=== PATIENT | male | born 1975 | race Caucasian/White ===

== ENCOUNTER → 2017-03-10 | Outpatient (CLI) | payer BC ==
[~2017-03-10] MED LIST: IBUPROFEN
== END ==
LOC: SLEEP 17:08
PROVIDERS: ATTEND Internal Medicine
DX: R06.83 Snoring (principal)
CPT/HCPCS: 95806

== ENCOUNTER 2017-12-31 10:59 | Emergency (ER) | payer BC ==
[~2017-12-31] VITALS: Ht 190.5 cm; Wt 108.0 kg
--- OUTSIDE RECORDS SUMMARY | 2017-12-31 11:00 | XMS REPORT ---
Author Author [facility] Address Unknown Phone Unavailable Care Team Providers Care Ic Engineer Name Role Phone Unavailable Unavailable Payers Payer Name Policy Type Policy Number Effective Date Expiration Date Problems This patient has no known problems. Allergies, Adverse Reactions, Alerts Allergy Name Allergy Type Status Severity Reaction(s) Onset Date Inactive Date Treating Clinician Comments No Known Allergies DA Active U 2017-12-23 00:00:00 Medications This patient has no known medications.
[2017-12-31] MEDS ORDERED: HYDROCODONE/APAP 5MG-325MG TAB PO NR (12:00)
--- NOTE | 2017-12-31 12:50 | Diagnostic Imaging Report ---
Right complete knee. CPT CODE: 43520. INDICATION: Fall COMPARISON: None FINDINGS: The oblique view is suboptimal. There are obliquely oriented fractures through the head/neck of the proximal fibula with minimal displacement on lateral image. Proximal tibia, distal femur, and patella are intact. Mild prominence of the tibial spines and trace medial and patellofemoral compartment narrowing. No joint effusion. IMPRESSION: 1. Oblique fractures fibular head without significant displacement. 2. Early degenerative changes of the knee. Signed by: Dr. Ivis Lorenz MD on 12/31/2017 12:46 PM
--- NOTE | 2017-12-31 13:22 | Diagnostic Imaging Report ---
History: Fall Comparison studies: None Technique: Axial images were obtained from the skull base to the vertex. Coronal and sagittal reconstructions obtained from the axial data. Dose modulation, iterative reconstruction, and/or weight based adjustment of the mA/kV was utilized to reduce the radiation dose to as low as reasonably achievable. Findings: Scalp/skull: No abnormalities. No fractures, blastic or lytic lesions. Extra-axial spaces: No masses. No fluid collections. Brain sulci: Appropriate for age. Ventricles: Normal in size and configuration. No hydrocephalus. Parenchyma: No abnormal densities. No masses, hemorrhage, acute or chronic cortical vascular insults. Sellar/suprasellar region: No abnormalities Craniocervical junction: Patent foramen magnum. No Chiari one malformation. IMPRESSION: No abnormalities . Signed by: DR Eder Krishnan M.D. on 12/31/2017 1:18 PM
--- NOTE | 2017-12-31 13:42 | Diagnostic Imaging Report ---
Ankle complete CPT CODE: 45424 HISTORY: Fall TECHNIQUE: Three views right ankle obtained COMPARISON: Right knee x-rays performed at 1207 hours. FINDINGS: The distal tibia and fibula appear intact. The posterior malleolus appears intact. Small osteophytes arise from the inferior malleoli. Ankle mortise remains symmetric. There is mild bimalleolar soft tissue swelling. The calcaneus appears intact. The visualized portions of the midfoot and forefoot are intact. IMPRESSION: No evidence of acute fracture or dislocation involving the ankle. Mild ankle swelling. Please correlate for medial ankle pain and swelling. Signed by: Dr. Ivis Lorenz MD on 12/31/2017 1:38 PM
[2017-12-31] MEDS ORDERED: TYLENOL WITH C1 EACH PO (15:18)
== END 2017-12-31 15:38 | disposition home or self-care (01) ==
LOC: ER 10:59
DX: S00.83XA Contusion of other part of head, initial encounter (principal); S82.424A Nondisplaced transverse fracture of shaft of right fibula, initial encounter for closed fracture; S83.91XA Sprain of unspecified site of right knee, initial encounter; W01.0XXA Fall on same level from slipping, tripping and stumbling without subsequent striking against object, initial encounter; Y93.01 Activity, walking, marching and hiking; Y92.008 Other place in unspecified non-institutional (private) residence as the place of occurrence of the external cause; I10 Essential (primary) hypertension
CPT/HCPCS: 70450; 99283

== ENCOUNTER → 2018-12-19 | Outpatient (CLI) | payer BC ==
[~2018-12-19] MED LIST changes: +GADOBENATE DIMEGLUMINE 1 ML IV ONE; +IOPAMIDOL 300 MG/ML 15ML VIAL IT ONE; +LIDOCAINE HCL 1% LOCAL INJ 20 ML VIAL ONE; +TYLENOL WITH C1 EACH PO
--- NOTE | 2018-12-19 12:50 | Diagnostic Imaging Report ---
EXAM: INJECTION ARTHROGRAM RIGHT GLENOHUMERAL JOINT DATE: 12/19/2018 12:00 AM INDICATION: Right shoulder pain COMPARISON: None Physician performing procedure: Dr. Zandra Coe MD PROCEDURES PERFORMED: Fluoroscopically-guided right glenohumeral joint arthrogram with MRI to follow Fluoro time: 0.6 minutes Dose: 6.7 mGy Anesthesia: Local, 1% lidocaine Devices: 22 gauge BD Quincke needle PROCEDURE REPORT: After written and verbal consent were obtained, the patient was placed supine on the fluoroscopy table with the right arm in external rotation.. Using fluoroscopic guidance, sterile technique and local anesthesia, a 22 gauge, 3.5 inch needle was inserted percutaneously into the right glenohumeral joint. Proper placement was confirmed by injecting Isovue 300 into the joint under fluoroscopy. Next, 12cc of a 1:100 mixture of Multihance with Isovue 300 and normal saline was injected. Complications: None Blood loss: Minimal Samples: None Patient disposition: MRI in stable condition. IMPRESSION: Uncomplicated fluoroscopically-guided right glenohumeral arthrogram with MRI to follow. Contrast is within the joint. See MRI report for full findings. Signed by: Zandra Coe MD on 12/19/2018 12:47 PM
--- NOTE | 2018-12-19 13:24 | Diagnostic Imaging Report ---
MRI of the right shoulder with contrast. History: Labral tear. Shoulder pain. Decreased range of motion. Pain not responding to conservative management Comparison: Radiographs 12/19/2018 Technique: Multiplanar multisequence MRI of the shoulder after the administration of intra-articular gadolinium contrast material Findings: Rotator cuff: Rotator cuff tendinosis with midsubstance degeneration and mild articular sided partial tear involving the anterior fibers of the supraspinatus tendon at the humeral insertion site. Additionally, there is infraspinatus and subscapularis tendinosis. The teres minor tendon is intact. Osseous acromion complex: Type II acromion with mild lateral downsloping. Mild degenerative arthrosis at the acromioclavicular joint with undersurface spurring and narrowing of the supraspinatus tendon outlet Glenohumeral joint: Superior labral tear extending from anterior to posterior. The humeral head is well-seated in the glenoid fossa. Gadolinium contrast material is seen filling the shoulder joint. The articular cartilage surfaces are intact. Capsular structures are intact. Biceps tendon: The biceps tendon is intact. Other findings: Negative for muscle denervation or osseous fracture. Impression: Superior labral tear extending from anterior to posterior. Rotator cuff tendinosis with midsubstance degeneration and mild articular sided partial tear involving the anterior fibers of the supraspinatus tendon at the humeral insertion site Signed by: Dr. Usman Reid M.D. on 12/19/2018 1:21 PM
== END ==
LOC: DX 10:24
PROVIDERS: ATTEND Specialist
DX: S43.431A Superior glenoid labrum lesion of right shoulder, initial encounter (principal)
CPT/HCPCS: 23350; 73222; A9577; J2001; Q9967; 20610

== ENCOUNTER → 2019-01-16 | Day surgery (SDC) | payer BC ==
[~2019-01-16] MED LIST changes: +BUPIVACAINE 0.25% 30ML SDV INJ ONE; +CLINDAMYCIN PHOS 900MG/ 50ML 50 ML IV ONE; +DEXAMETHASONE SOD PHOS INJ 4 MG/ML VIAL ONE; +EPHEDRINE SULFATE INJ 50 MG/ML VIAL ONE; +EPINEPHRINE 1 MG/ML 30ML VIAL ONE; +EYE LUBRICANT OPTH OINT 3.5GM TUBE OP ONE; +FENTANYL CITRATE/PF 100MCG/2 ML INJ ONE; -GADOBENATE DIMEGLUMINE 1 ML IV ONE; +GLYCOPYRROLATE INJ 0.2 MG/ML VIAL ONE; -IOPAMIDOL 300 MG/ML 15ML VIAL IT ONE; +LIDOCAINE 2% /EPINEPHRINE 20 ML SDV INJ ONE; -LIDOCAINE HCL 1% LOCAL INJ 20 ML VIAL ONE; +LIDOCAINE HCL 2% LOCAL INJ 5 ML SDV VIAL INJ ONE; +METOCLOPRAMIDE HCL 10 MG/2ML VIAL ONE; +MIDAZOLAM HCL 2 MG/2 ML VIAL ONE; +NEOSTIGMINE 1 MG/ML 10ML VIAL ONE; +NOREPINEPHRINE INJ 4MG/4ML 4 ML ONE; +ONDANSETRON HCL INJ 2MG/ML 2ML 2 MG/ML VIAL ONE; +PHENYLEPHRINE HCL 1% 10 MG/ML VIAL ONE; +PROPOFOL IV EMULSION 10 MG/ML 20 ML VIAL ONE; +ROCURONIUM BROMIDE 10 MG/ML 5ML VIAL ONE; +SEVOFLURANE INHAL SOLN 250 ML PEN BTL ONE; +SODIUM CHLORIDE 0.9% 100 ML ONE
[2019-01-16 13:30] VITALS: BP 133/80
--- NOTE | 2019-01-18 15:53 | Operative Report ---
DATE OF PROCEDURE: 01/16/2019 SURGEON: Willis Fletcher MD PREOPERATIVE DIAGNOSIS: Right shoulder labral tear. POSTOPERATIVE DIAGNOSES: Right shoulder labral tear and right shoulder partial rotator cuff tear. OPERATIONS AND PROCEDURES PERFORMED: The patient underwent right shoulder examination under anesthesia, right shoulder arthroscopy, right shoulder debridement of a partial rotator cuff tear, right shoulder arthroscopic labral repair. AGRICULTURAL LENDER: LAURENT Mullen. ANESTHESIA: General endotracheal intubation anesthesia. IV FLUIDS: Per the anesthesia record. COMPLICATIONS: None. BRIEF DESCRIPTION OF THE PATIENT'S OPERATIVE PROCEDURE: Mr. Rowe was taken to the operating room and placed in the supine position on the operating table. Following induction of general anesthesia as well as endotracheal intubation, the patient's right upper extremity was examined under anesthesia. He was found to have no gross abnormalities about the shoulder joint. The patient had full passive range of motion of the shoulder. There is no evidence of instability. The patient's shoulder and upper extremity were prepped and draped in standard surgical fashion. A standard posterolateral and anterior portals were created without difficulty. The scope was placed within the shoulder joint atraumatically. Examination of the glenohumeral joint demonstrated no significant evidence of chondromalacia. There were no loose bodies in the shoulder joint. There was a partial-thickness tear of the infraspinatus tendon. This comprised less than 50% of the articular surface insertion of the rotator cuff tissue. A probe was placed in the shoulder joint and the long head of the biceps tendon was found to be contained within the shoulder joint. Examination of the labrum demonstrated elevation of the biceps insertion, primarily posteriorly, but extending to the anterior arm of the labrum. A shaver was placed in the shoulder joint and the rotator cuff injury was debrided. The shaver was then used to debride the insertion site for the biceps anchor and superior labrum. This extended from just posterior to the insertion of the biceps tendon over the anterior and superior rim of glenoid. The shaver was used to debride the glenoid to a bleeding bony bed. Two anchors were then inserted in the superior rim of the glenoid on either side of the biceps tendon. The suture arms from those anchors were woven around the labral tissue. The tissue was then tied firmly restoring the anatomy of the biceps anchor and superior labrum anteriorly and posteriorly. The probe was then placed in the shoulder joint and the labral repair was probed and found to be firmly attached to the glenoid. The shoulder was then inflated with sterile normal saline. The portal sites were closed. Sterile dressings were applied. The patient was provided with a shoulder immobilizer, awakened, and taken to the postanesthesia care in stable condition. Nara Moffett acted as a pest controller assistant for this case and was necessary for the prepping and draping the patient as well as the positioning of the arm and the passage of suture that allowed this case to be successful. MD ARIS Pepe/SETH /[id number]
== END | disposition home or self-care (01) ==
LOC: OR 08:04
PROVIDERS: ATTEND Specialist
DX: S43.431A Superior glenoid labrum lesion of right shoulder, initial encounter (principal); S46.092A Other injury of muscle(s) and tendon(s) of the rotator cuff of left shoulder, initial encounter; M70.21 Olecranon bursitis, right elbow; J45.909 Unspecified asthma, uncomplicated; G47.33 Obstructive sleep apnea (adult) (pediatric); E78.5 Hyperlipidemia, unspecified; F41.9 Anxiety disorder, unspecified; X58.XXXA Exposure to other specified factors, initial encounter; Z91.09 Other allergy status, other than to drugs and biological substances; Z01.810 Encounter for preprocedural cardiovascular examination; Z87.891 Personal history of nicotine dependence
CPT/HCPCS: 29807; 93005; J1100; J2001 ×2; J2370; J2405; J2704; J2710; J2765; J7050; J2250; J3010

== ENCOUNTER 2024-04-05 09:39 | Emergency (ER) | payer BC ==
[~2024-04-05] VITALS: Ht 188 cm; Wt 113.4 kg
[~2024-04-05 09:39] MED LIST changes: -BUPIVACAINE 0.25% 30ML SDV INJ ONE; -CLINDAMYCIN PHOS 900MG/ 50ML 50 ML IV ONE; -DEXAMETHASONE SOD PHOS INJ 4 MG/ML VIAL ONE; -EPHEDRINE SULFATE INJ 50 MG/ML VIAL ONE; -EPINEPHRINE 1 MG/ML 30ML VIAL ONE; -EYE LUBRICANT OPTH OINT 3.5GM TUBE OP ONE; -FENTANYL CITRATE/PF 100MCG/2 ML INJ ONE; -GLYCOPYRROLATE INJ 0.2 MG/ML VIAL ONE; -LIDOCAINE 2% /EPINEPHRINE 20 ML SDV INJ ONE; -LIDOCAINE HCL 2% LOCAL INJ 5 ML SDV VIAL INJ ONE; -METOCLOPRAMIDE HCL 10 MG/2ML VIAL ONE; -MIDAZOLAM HCL 2 MG/2 ML VIAL ONE; -NEOSTIGMINE 1 MG/ML 10ML VIAL ONE; -NOREPINEPHRINE INJ 4MG/4ML 4 ML ONE; -ONDANSETRON HCL INJ 2MG/ML 2ML 2 MG/ML VIAL ONE; -PHENYLEPHRINE HCL 1% 10 MG/ML VIAL ONE; -PROPOFOL IV EMULSION 10 MG/ML 20 ML VIAL ONE; -ROCURONIUM BROMIDE 10 MG/ML 5ML VIAL ONE; -SEVOFLURANE INHAL SOLN 250 ML PEN BTL ONE; -SODIUM CHLORIDE 0.9% 100 ML ONE
[2024-04-05 10:29] LABS: BASOPHILS # (AUTO) 0.1 (0.0-0.1); BASOPHILS % 0.9 % (0.0-1.0); EOSINOPHILS # (AUTO) 0.3 (0.0-0.4); HEMATOCRIT 45.4 % (38.2-49.6); HEMOGLOBIN 15.5 g/dL (14.0-18.0); LYMPHOCYTES # (AUTO) 2.6 (1.0-3.2); LYMPHOCYTES % 29.6 % (18.0-39.1); MEAN CORPUSCULAR HEMOGLOBIN 31.1 pg (28-32); MEAN CORPUSCULAR HGB CONC 34.1 g/dL (31-35); MONOCYTES # (AUTO) 0.7 (0.2-0.8); MONOCYTES % 8.3 % (4.4-11.3); NEUTROPHILS # (AUTO) 5.1 (2.1-6.9); NEUTROPHILS % 57.6 % (38.7-80.0); PLATELET COUNT 236 x10e3/uL (140-360); RED BLOOD COUNT 4.99 x10e6/uL (4.3-5.7); RED CELL DISTRIBUTION WIDTH 13.8 % (11.7-14.4); WHITE BLOOD COUNT 8.91 x10e3/uL (4.8-10.8)
[2024-04-05 11:37] LABS: CALCIUM 9.6 mg/dL (8.4-10.2); CREATININE, SERUM 0.78 mg/dL (0.72-1.25)
[2024-04-05] MEDS ORDERED: IOPAMIDOL 370 MG/ML 100 ML INFUS..BTL INJ ONE (12:13)
[2024-04-05] MEDS ORDERED: AMOX TR-K CLV1 EAC2 PO (12:53)
[2024-04-05] MEDS ORDERED: BACTRIM DS TAB1 EACH PO (12:53)
[2024-04-05 14:01] VITALS: PULSE 77; RESP 18; TEMP 98.3; O2SAT 100
== END 2024-04-05 14:05 | disposition home or self-care (01) ==
LOC: ER 09:45
DX: L03.213 Periorbital cellulitis (principal); I10 Essential (primary) hypertension
CPT/HCPCS: 36415; 70481; 80048; 85025; 99284; J0295; J7050; Q9967